=== PATIENT | female | born 1950 | race Caucasian/White ===

== ENCOUNTER 2020-04-29 11:50 | Observation (INO) | payer MEDICARE, SELFPAY ==
[2020-04-29] VITALS (42 sets, daily range): BP systolic 127–167; BP diastolic 65–97; PULSE 69–88; RESP 16–32; TEMP 36.1–36.6; O2SAT 97–100; BMI 37.2
--- NOTE | ~2020-04-29 | XR_ITS ---
XR chest 1V portable 05/01/2020 18:19 Indication: Status post fall. Trauma to the upper chest. Procedure: AP portable chest Comparison: Comparison to multiple prior studies sequentially, with oldest reviewed study dated 02/23. Findings: Heart size normal. Low lung volumes. Left basilar atelectasis. No focal pneumonia, pleural effusion, edema or pneumothorax. Calcified granuloma right upper lung zone. No acute osseous abnormal ity. Impression: 1: Left basilar atelectasis. Reviewed, dictated and finalized at location A. NG MACHINE OPERATOR Impression: 1: Left basilar atelectasis.
--- NOTE | ~2020-04-29 | US_ITS ---
EXAMINATION: US carotid duplex BI DATE: 04/30/2020 08:51 INDICATION: Syncope. TECHNIQUE: Grayscale, color Doppler, and pulsed Doppler images of the cervical carotid arteries were obtained. The degree of vessel stenosis is placed in one of the following categories: normal, <50%, 5 0-69%, >=70% but less than near-occlusion, near-occlusion, or total occlusion. Note that percent sten osis relative to normal distal artery lumen diameter is indirectly measured from velocity measurement s as described by Koby, et al. Radiology 2003; 229:340-346. COMPARISON: None. FINDINGS: RIGHT: The right common carotid artery (CCA) peak systolic velocity (PSV) is 78 cm/s. The right internal car otid artery (ICA) PSV is 65 cm/s. The right ICA end-diastolic velocity (EDV) is 15 cm/s. The right IC A/CCA PSV ratio is 0.8. Grayscale and color Doppler images yield an estimate of <50% diameter reducti on from plaque in the ICA. There is antegrade flow in the right vertebral artery. LEFT: The left CCA PSV is 93 cm/s. The left ICA PSV is 69 cm/s. The left ICA EDV is 17 cm/s. The left ICA/C CA PSV ratio is 0.7. Grayscale and color Doppler images yield an estimate of <50% diameter reduction from plaque in the ICA. There is antegrade flow in the left vertebral artery. IMPRESSION: 1. <50% stenosis in the right internal carotid artery. 2. <50% stenosis in the left internal carotid artery. Reviewed, dictated and finalized at location A. STANT BRAND MANAGER
--- NOTE | ~2020-04-29 | CT_ITS ---
EXAMINATION: CTA chest PE protocol DATE: 04/29/2020 16:38 INDICATION: Shortness of breath. TECHNIQUE: Computed tomography angiography (CTA) of the chest was performed with 100 mL Omnipaque-350 intravenous contrast timed to evaluate the pulmonary arteries. Coronal maximum intensity projection 3D-reconstructions were created by the technologist. Automated exposure control and iterative reconst ruction technique were employed. The dose-length product was 849.54 mGy-cm. COMPARISON: None. FINDINGS: There are scattered areas of mild atelectasis in the lungs. There is mosaic attenuation in the lungs, likely small airways disease. A calcified right lung nodule and calcified right hilar lymp h nodes are consistent with old granulomatous disease. There are several scattered nodules in the bryant gs measuring up to 5 mm, likely benign. No pleural effusion. There is left atrial enlargement of the heart. No pericardial effusion. There are coronary artery calcifications. There is no pulmonary embol us. There is a lap band at the proximal stomach with normal position. There are gallstones in the gal lbladder, which is normal in size. There is moderate thoracic spondylosis. There is mild chronic ante rior wedging of multiple lower thoracic vertebral bodies. IMPRESSION: 1. No pulmonary embolus. 2. Cholelithiasis. No evidence of acute cholecystitis. Reviewed, dictated and finalized at location A. 1ST GRADE TEACHER
--- NOTE | ~2020-04-29 | CT_ITS ---
EXAMINATION: CT brain wo con EXAM DATE: 04/29/2020 12:59 INDICATION: Syncope. Bruising to left judaism, head injury. TECHNIQUE: Spiral CT of the head was performed without contrast. Axial, coronal and sagittal images were reviewed. The dose-length product (DLP) for this examination was 605.33 mGy-cm. The exposure w as tailored according to patient size, and iterative reconstruction (ASIR) was used as additional dos e reduction technique. There is no prior study for comparison. FINDINGS: There is no acute intraparenchymal hemorrhage. No evidence of intraparenchymal brain mass lesion. No evidence of acute infarction. Please note that initial head CT has limited sensitivity f or small or acute infarctions. There is mild periventricular and subcortical hypodensity, nonspecific but probably related to small vessel ischemic disease. There is moderate prominence of the sulci a nd ventricles related to cerebral atrophy. There is intracranial carotid arteriosclerosis. There a re no extra-axial collections. There is no mass effect or midline shift. Patient has had bilateral ocular lens surgery. Small amount of left temporal scalp swelling. The visualized sinuses and mastoi d air cells are well aerated. IMPRESSION: 1. No acute intracranial findings. 2. Chronic age related findings. 3. Left scalp swelling. Reviewed, dictated and finalized at location B. GHT SERVICE INSPECTOR
--- NOTE | 2020-04-29 12:00 | ECG_ITS ---
Measurements Intervals [place] Rate: 78 P: 50 [place]: 142 QRS: -2 QRSD: 86 T: 46 QT: 378 QTc: 431 Interpretive Statements SINUS RHYTHM BASELINE ARTIFACT- I, II, AVR, AVL, V1, V3-V4 NORMAL ECG Electronically Signed On 04-29-2020 12:18:03 DIPPER MACHINE OPERATOR by Damian Elias D.O.
[2020-04-29 12:17] LABS: Basophils Absolute Auto 0.1 K/mm3 (0.0-0.1); Basophils Percent Auto 0.7 % (0.2-1.2); Eosinophils Absolute Auto 0.1 K/mm3 (0-0.3); Eosinophils Percent Auto 0.8 % (0-4.4); Hematocrit 38.7 % (37.0-47.0); Hemoglobin 12.9 g/dL (12.0-15.0); Immature Granulocyte Absolute 0.05 K/mm3 (0.00-0.031); Immature Granulocyte Percent A 0.5 % (0-0.5); Lymphocytes Absolute Auto 2.16 K/mm3 (0.9-3.2); Lymphocytes Percent Auto 20.4 % (18.3-44.2); Mean Corpuscular HGB Conc 33.3 g/dl (32-36); Mean Corpuscular Hemoglobin 30.4 pg (26-34); Mean Corpuscular Volume 91.1 fl (80-100); Mean Platelet Volume 9.3 fl (7.4-10.4); Monocytes Absolute Auto 0.6 K/mm3 (0.1-0.6); Monocytes Percent Auto 5.6 % (2.6-8.5); Neutrophils Absolute Auto 7.6 K/mm3 (1.3-6.7); Platelet Count Result 248 k/mm3 (150-375); Red Blood Count 4.25 M/mm3 (4.2-5.4); White Blood Count 10.6 K/mm3 (4.5-10.0)
[2020-04-29 12:29] LABS: Anion Gap 8 mmol/L (8-16); Blood Urea Nitrogen 14 mg/dL (7-17); Carbon Dioxide 30 mmol/L (22-30); Chloride 99 mmol/L (98-107); Estimated CRCL calculation 64 ml/min; Estimated Glomerular Filt Rate > 60; Glucose 114 mg/dL (65-105); Sodium 137 mmol/L (137-145)
--- NOTE | 2020-04-29 12:44 | ED.SYNCOPE ---
HPI - Syncope General Chief Complaint: Syncope Stated Complaint: SYNCOPE-FALL HI Time Seen by Provider: 04/29/20 12:17 Source: patient Mode of arrival: ambulatory Limitations: no limitations History of Present Illness HPI narrative: Patient is a 69-year-old female complaining of a syncopal episode, lasted only for 1 to 2 minutes, while walking to the bathroom at home, felt dizzy prior. Patient states that she did hit her head on a heater, having some head pain on the left and left shoulder pain. Patient was able to ambulate after the episode. Patient also complaining of left-sided chest pain which she attributes to her fall. Patient states that she was a symptomatic prior to the fall. Patient denies any speech or visual disturbance, neck pain, back pain, abdominal pain, hip, or any other extremity pain/injury. Related Data Allergies Allergy/AdvReac Type Severity Reaction Status Date / Time No Known Allergies Allergy Verified 04/29/20 11:59 Review of Systems Review of Systems: All systems reviewed & are unremarkable except as noted in HPI and below Constitutional: Constitutional: Denies body ache(s), Denies chills, Denies excessive sweating, Denies fatigue, Denies fever(s), Denies headache(s), Denies lethargy, Denies malaise, Denies weakness and Denies weight loss Eyes: Eyes: Denies blurry vision, Denies change in vision and Denies loss of vision ENT: Denies dizziness, Denies ear discharge, Denies headache(s), Denies lip swelling, Denies epistaxis, Denies nasal congestion, Denies neck pain, Denies throat swelling and Denies tongue swelling Cardiovascular: Cardiovascular: Denies chest pain, Denies chest pain at rest, Denies chest pain with activity, Denies diaphoresis, Denies rapid heart rate, Denies edema, Denies irregular heart rhythm, Denies lightheadedness, Denies palpitations, Denies dyspnea and Denies dyspnea on exertion Respiratory: Respiratory: Denies chest congestion, Denies cough, Denies hemoptysis, Denies dyspnea and Denies dyspnea on exertion Gastrointestinal: Gastrointestinal: Denies abdominal pain, Denies melena, Denies hematochezia, Denies diarrhea, Denies nausea, Denies vomiting and Denies hematemesis Musculoskeletal: Musculoskeletal: Denies abnormal gait, Denies deformity, Denies joint swelling, Denies limited range of motion, Denies neck pain and Denies numbness Neurologic: Denies Abnormal speech present, Denies abnormal gait, Denies confusion, Denies dizziness, Denies headache(s), Denies focal weakness, Denies loss of vision, Denies numbness, Denies Other visual disturbances, Denies Sensory deficit (Neuro) and Denies weakness Psychiatric: Psychiatric: Denies confusion, Denies depression, Denies auditory hallucinations, Denies homicidal ideation and Denies suicidal ideation Endocrine: Endocrine: Denies cold intolerance, Denies excessive sweating, Denies fatigue, Denies heat intolerance and Denies palpitations Hematologic/Lymphatic: Hematologic/Lymphatic: Denies easy bleeding and Denies easy bruising Allergic/Immunologic: Allergic/Immunologic: Denies lip swelling, Denies throat swelling and Denies tongue swelling PMFSH Social History Social History Smoking status: Never smoker Alcohol intake: never Exam Const: General: cooperative, healthy appearing, comfortable, no acute distress, well developed, alert and awake; No confusion Orientation/consciousness: oriented to person, oriented to place, oriented to time, patient oriented x3 and No confusion Limitations: no limitations HENMT: Ears: hearing grossly normal bilaterally, TM normal on the right and TM normal on the left General nose exam: Normal external nose present, Normal nares present and No nasal discharge present Face and sinus: normal facial exam Mouth: Yes Normal oral and palatal mucosa present, Yes lip normal, Yes tongue normal and Yes oropharynx normal Throat: posterior oropharynx normal, to
[2020-04-29] MEDS: SODIUM CHLORIDE 0.9% IV 1,000 ML 999 ML IV CONT (12:55)
[2020-04-29 14:32] LABS: Troponin I < 0.012 ng/mL (0.000-0.034)
[2020-04-29 15:29] LABS: D Dimer 1.04 ug/mL (<0.48)
[2020-04-29] MEDS: SODIUM CHLORIDE 0.9% IV 100 ML 400 ML (15:38)
[2020-04-29] MEDS: PROMETHAZINE HCL 25 MG/ML AMPUL (15:38)
--- NOTE | 2020-04-29 15:38 | PC.NURSE ---
vrbo to give ofirmev 1g ivp x1 phenergan 12.5mg ivp x1 ns [address] feldman
--- NOTE | 2020-04-29 16:30 | PM.IMHP ---
H&P: HPI History of Present Illness Date/Time: 04/29/20 16:30 Chief Complaint: Syncope. Narrative: This is a pleasant 69-year-old female with type 2 diabetes, hypertension, and obstructive sleep apnea who presented to the emergency department earlier today via private vehicle from home for evaluation after a syncopal episode. She got up to use the restroom at approximately 00:[address] back down the [place] everything suddenly went black and she woke up on the floor face down. She briefly lost consciousness and but was awake and oriented by the time her significant other got to her side. She hit the left side of her head on a space heater that was in the hallway, and landed with majority of her weight on the left side of her body. She had a difficult time getting up due to he vertigo and nausea thereafter, and her significant other had to help her to bed. Today she has had a splitting headache with photophobia as well as continued nausea. She did speak with her doctor about this episode and was directed to the emergency department. Currently she complains of a headache, mainly at this site of at a contusion on the left forehead from the fall. She is also having some discomfort in the left shoulder and left side of the chest, which she attributes to muscle strain from a fall. As above, she denies any significant prodrome and was not feeling lightheaded or dizzy prior to the episode. She also denies chest pain, pleuritic pain, and shortness of breath. No new medications although she did receive her 1st COVID vaccine about 3 days ago. No history of cardiac dysrhythmia. Review of Systems Review of Systems: Narrative: Twelve systems were reviewed with pertinent positives and negatives as per HPI. No fever, chills, or sweats. No recent cold or flu symptoms. She has had some vertigo since the fall and head trauma. No confusion. She denies focal weakness and paresthesias. No vomiting. Except as documented, all other systems were reviewed and are negative. [facility] Past Medical History Medical History (Updated 04/29/20 @ 23:02 by Myesha Croft PA-C) Asthma Essential hypertension History of shingles Obstructive sleep apnea on CPAP Type 2 diabetes mellitus Surgical History Surgical History (Updated 04/29/20 @ 22:59 by Myesha Croft PA-C) History of appendectomy History of arthroscopy of both knees History of bilateral cataract extraction History of bilateral knee arthroplasty History of bladder suspension procedure History of hysterectomy History of sinus surgery History of tonsillectomy History of tubal ligation Family History Family History Father Lymphoma Mother Heart disease Breast cancer Social History Social History (Updated 04/29/20 @ 23:00 by Myesha Croft PA-C) Social History: Surrogate decision maker: Mookie Pang, significant other. Code status: Full code. Smoking status: Former smoker Additional smoking assessment comments: 1 pack per day, quit about 25 years ago. Alcohol intake: never Substance use: never Additional living arrangements comments: Lives with her significant other in [place]. 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 Gender identity (if verbalized by the patient): Female Spiritual care concerns: No Meds Home Medications and Allergies Home Medications Medication Instructions Recorded Confirmed Type cholecalciferol (vitamin D3) 125 mcg PO DAILY 04/29/20 04/29/20 History liraglutide [Victoza 3-Ibrahima] 1.6 mg SUBCUT DAILY 04/29/20 04/29/20 History loratadine [Claritin] 10 mg PO DAILY 04/29/20 04/29/20 History losartan-hydrochlorothiazide 1 tablet PO DAILY 04/29/20 04/29/20 History metformin 1,000 mg PO BID 04/29/20 04/29/20 History Allergies Allergy/AdvReac Type Severity Reaction Status Date / Time No Known Allergies Allergy Verified 04/29/20 19:27
[2020-04-29] MEDS: LACTATED RINGERS 1,000 ML 250 ML IV CONT (17:51)
--- NOTE | 2020-04-29 18:45 | ADMGEN ---
This patient, Hallie Reina, was admitted to Medical Room 247-. Patient/family oriented to hospital policies and general routines including ID bracelet, bed and alarms, visiting hours, pain management, procedures, bathroom and other care routines, personal items, smoking policy, room service/diet, and visiting hours. Information on how to activate the Rapid Response Team has been discussed. Patient/Family are encouraged to report perceived risks to care and to ask questions if they do not understand what they are told or what they should do.
[2020-04-29] MEDS: ACETAMINOPHEN 325 MG TABLET 650 MG PO (23:37)
[2020-04-29 23:45] LABS: Glucose Point of Care 111 (65-105)
[2020-04-30] VITALS (14 sets, daily range): BP systolic 102–141; BP diastolic 56–80; PULSE 70–84; RESP 16–18; TEMP 35.9–37.2; O2SAT 94–98
--- NOTE | 2020-04-30 00:22 | PCRCNOTE ---
DISCUSSED CPAP WITH PT WHO DOES NOT WANT TO USE TONIGHT DUE TO BUMP ON HER HEAD FROM FALL. RN SOILA ESPINOZA AWARE OF PT DECISION AND WILL CALL IF PT CHANGES HER MIND AT ANY TIME.
[2020-04-30] MEDS: ACETAMINOPHEN 325 MG TABLET 650 MG PO ×3 (07:00→22:34)
[2020-04-30 07:50] LABS: Thyroid Stimulating Hormone Reflex 0.648 uIU/mL (0.465-4.68)
[2020-04-30] MEDS: LORATADINE 10 MG TABLET PO (08:00)
[2020-04-30] MEDS: CHOLECALCIFEROL 1,000 UNITS TABLET 5000 UNITS PO (08:00)
[2020-04-30] MEDS: hydroCHLOROthiazide 12.5 MG CAPSULE PO (08:00)
[2020-04-30] MEDS: LOSARTAN POTASSIUM 50 MG TABLET PO (08:00)
[2020-04-30 09:47] LABS: Glucose Point of Care 109 (65-105)
--- NOTE | 2020-04-30 11:48 | PM.IMPN ---
Progress Note: A&P Assessment and Plan (1) Syncopal episodes: Code(s): R55 - Syncope and collapse Status: Acute Assessment and Plan: 04/30/20 11:48 Patient is 69-year-old female with a past medical history of diabetes, hypertension obstructive sleep apnea, patient woke up at midnight on 04/29 to go to the bathroom on her way back patient states she suddenly felt blacked out and fell forward striking left side to the forehead and landing on space heater, there were no complaint chest pain, shortness of breath, palpitation or dizziness prior to fall, thinks she may have lost consciousness for few seconds, her boyfriend helped her get to the bed a patient slept remaining of the night in the morning her headache was getting worse and patient call her primary care was referred to the emergency department, patient still complains left-sided forehead pain, to further evaluate patient had a CT scan of the brain essential normal no acute injury, the CTA of the chest no pulmonary emboli, EKG essentially normal with normal sinus rhythm, currently patient states feels little better, also patient had carotid ultrasound did not show any stenosis, cardiac echo is pending, will have a PT OT evaluate the patient and further recommendation to follow (2) Closed head injury with concussion: Code(s): S06.0X9A - Concussion with loss of consciousness of unspecified duration, initial encounter Status: Acute Assessment and Plan: Plan is above (3) Type 2 diabetes mellitus: Code(s): E11.9 - Type 2 diabetes mellitus without complications Status: Acute Assessment and Plan: Will continue home regimen and monitor (4) Essential hypertension: Code(s): I10 - Essential (primary) hypertension Status: Acute Assessment and Plan: Will continue home regimen and monitor (5) Obstructive sleep apnea on CPAP: Code(s): G47.33 - Obstructive sleep apnea (adult) (pediatric); Z99.89 - Dependence on other enabling machines and devices Status: Acute Additional Plan The patient presented about 12 hours after having a syncopal episode last evening, without any significant prodrome. She will be monitored on telemetry to rule out cardiac dysrhythmia and may need a Holter monitor on discharge. Echocardiogram and carotid Doppler ultrasounds have been ordered for further evaluation. Orthostatic vital signs in the emergency department were unremarkable. She seems to have a concussion from the head injury, with headache and vertigo thus will continue neurologic checks. Blood pressures were reviewed and they were a bit elevated after her CT scan earlier today but have improved. Her home medications will be reviewed and resumed as appropriate. Initiate sliding scale insulin, Accu-Cheks, and hypoglycemic protocol. CPAP will be provided for her to use while hospitalized. Subjective Date/time seen: 04/30/20 11:48 Patient is 69-year-old female with a past medical history of diabetes, hypertension obstructive sleep apnea, patient woke up at midnight on 04/29 to go to the bathroom on her way back patient states she suddenly felt blacked out and fell forward striking left side to the forehead and landing on space heater, there were no complaint chest pain, shortness of breath, palpitation or dizziness prior to fall, thinks she may have lost consciousness for few seconds, her boyfriend helped her get to the bed a patient slept remaining of the night in the morning her headache was getting worse and patient call her primary care was referred to the emergency department, patient still complains left-sided forehead pain, to further evaluate patient had a CT scan of the brain essential normal no acute injury, the CTA of the chest no pulmonary emboli, EKG essentially normal with normal sinus rhythm, currently patient states feels little better, also patient had carotid ultrasound did not show any stenosis, cardiac echo is pending, will h
[2020-04-30 13:09] LABS: Hemoglobin A1C 5.6 % (<5.7)
[2020-04-30 13:21] LABS: Glucose Point of Care 79 (65-105)
[2020-04-30 14:40] LABS: Alanine Aminotransferase 19 U/L (4-35); Albumin Level 3.8 g/dL (3.5-5.1); Alkaline Phosphatase 48 U/L (38-126); Anion Gap 4 mmol/L (8-16); Aspartate Amino Transferase 25 U/L (14-36); Bilirubin,Total 0.4 mg/dL (0.2-1.3); Blood Urea Nitrogen 11 mg/dL (7-17); Calcium 8.6 mg/dL (8.4-10.2); Carbon Dioxide 30 mmol/L (22-30); Chloride 105 mmol/L (98-107); Estimated CRCL calculation 74 ml/min; Estimated Glomerular Filt Rate > 60; Glucose 106 mg/dL (65-105); Magnesium 1.7 mg/dL (1.6-2.3); Potassium 4.3 mmol/L (3.4-5.0); Sodium 139 mmol/L (137-145)
[2020-04-30 17:43] LABS: Glucose Point of Care 157 (65-105)
[2020-04-30 21:00] LABS: Glucose Point of Care 125 (65-105)
--- NOTE | 2020-04-30 23:04 | ECHO_ITS ---
Patient Info Name: Hallie Reina Age: 69 years : 1950 Gender: Female Ht: 67 in Wt: 230 lbs BSA: 2.26 m2 HR: 64 bpm BP: 112 / 61 mmHg Technical Quality: Fair Exam Date: 04/30/2020 11:10 AM Exam Location: [facility] Patient Status: Inpatient Admit Date: 04/29/2020 Staff Ordering Physician: Myesha Croft PA-C Rock Contractor: Shi Marina RDCS Attending Provider: Darren Mcfarlane MD Referring Physician: Guerda QUINTANA; Exam Type: CA echo dop color flow w con Study Info Complete two-dimensional, color flow and Doppler transthoracic echocardiogram is performed with contrast to opacify the left ventricle and to improve the deliniation of the left ventricle endocardial borders. Contrast/Agitated Saline Contrast/Ag. Saline: Definity Amount: 4.00 ml Summary 1. Left ventricular chamber dimension is normal. 2. Left ventricular systolic function is normal, estimated at 65-70%. 3. There is mildly increased left ventricular wall thickness. 4. Left ventricular septal wall motion is normal. 5. The left ventricular diastolic function is grade I diastolic dysfunction. 6. Right ventricular chamber dimension is normal. 7. Right ventricular systolic function is normal. 8. Left atrial chamber dimension is moderately enlarged. 9. No pulmonary hypertension, estimated pulmonary arterial systolic pressure is 24 mmHg. 10. Normal inferior vena cava with >50% collapse upon inspiration consistent with normal right atrial pressure, 3 mmHg. Left Ventricle Left ventricular chamber dimension is normal. Left ventricular systolic function is normal, estimated at 65-70%. There is mildly increased left ventricular wall thickness. Left ventricular septal wall motion is normal. The left ventricular diastolic function is grade I diastolic dysfunction. Right Ventricle Right ventricular chamber dimension is normal. Right ventricular systolic function is normal. Left Atria Left atrial chamber dimension is moderately enlarged. Right Atria Right atrial chamber dimension is normal. Aortic Valve The aortic valve is trileaflet. There is no aortic valve sclerosis. There is no aortic valve stenosis. There is no aortic valve regurgitation. Pulmonic Valve The pulmonic valve is not well visualized. There is no pulmonic valve stenosis. There is no pulmonic regurgitation. Mitral Valve The mitral valve has normal leaflets. There is no mitral valve stenosis. There is no mitral valve regurgitation. Tricuspid Valve The tricuspid valve leaflets are normal. There is no significant tricuspid valve stenosis. There is mild tricuspid valve regurgitation. No pulmonary hypertension, estimated pulmonary arterial systolic pressure is 24 mmHg. Pericardium/Pleural The pericardium appears normal. There is no pericardial effusion. Inferior Vena Cava Normal inferior vena cava with >50% collapse upon inspiration consistent with normal right atrial pressure, 3 mmHg. Aorta The aortic root size at the sinus of Valsalva is normal. The prox ascending aorta size is normal. Left Ventricular Outflow Tract Name Value Normal LVOT 2D LVOT Diameter 2.08 cm
[2020-05-01] VITALS (12 sets, daily range): BP systolic 113–144; BP diastolic 63–84; PULSE 66–95; RESP 16–18; TEMP 36.2–36.8; O2SAT 95–98
[2020-05-01] MEDS: ACETAMINOPHEN 325 MG TABLET 650 MG PO ×2 (03:56→18:03)
[2020-05-01 05:50] LABS: Hematocrit 34.1 % (37.0-47.0); Hemoglobin 11.2 g/dL (12.0-15.0); Mean Corpuscular HGB Conc 32.8 g/dl (32-36); Mean Corpuscular Hemoglobin 29.5 pg (26-34); Mean Corpuscular Volume 89.7 fl (80-100); Mean Platelet Volume 9.5 fl (7.4-10.4); Platelet Count Result 220 k/mm3 (150-375); Red Cell Distribution Width 13.9 % (11.5-14.5); White Blood Count 7.7 K/mm3 (4.5-10.0)
[2020-05-01 06:02] LABS: Anion Gap 5 mmol/L (8-16); Blood Urea Nitrogen 11 mg/dL (7-17); Calcium 8.4 mg/dL (8.4-10.2); Carbon Dioxide 30 mmol/L (22-30); Chloride 102 mmol/L (98-107); Estimated CRCL calculation 74 ml/min; Estimated Glomerular Filt Rate > 60; Glucose 113 mg/dL (65-105); Potassium 3.9 mmol/L (3.4-5.0); Sodium 137 mmol/L (137-145)
[2020-05-01] MEDS: LORATADINE 10 MG TABLET PO (08:19)
[2020-05-01] MEDS: LOSARTAN POTASSIUM 50 MG TABLET PO (08:19)
[2020-05-01] MEDS: CHOLECALCIFEROL 1,000 UNITS TABLET 5000 UNITS PO (08:19)
[2020-05-01] MEDS: hydroCHLOROthiazide 12.5 MG CAPSULE PO (08:19)
--- NOTE | 2020-05-01 08:24 | PC.NURSE ---
Pt home med Victoza has not been brought to hospital.
--- NOTE | 2020-05-01 09:19 | ECG_ITS ---
Measurements Intervals [place] Rate: 90 P: 19 [place]: 145 QRS: 13 QRSD: 77 T: 34 QT: 335 QTc: 411 Interpretive Statements SINUS RHYTHM ATRIAL PREMATURE COMPLEX BORDERLINE T WAVE ABNORMALITY- INFERIOR LEADS BORDERLINE ECG Electronically Signed On 05-01-2020 11:28:30 LIGHTING EQUIPMENT OPERATOR by Damian Elias D.O.
--- NOTE | 2020-05-01 09:45 | PM.IMPN ---
Progress Note: A&P Assessment and Plan (1) Syncopal episodes: Code(s): R55 - Syncope and collapse Status: Acute Assessment and Plan: 05/01/20 09:45 Patient is 69-year-old female with a past medical history of diabetes, hypertension obstructive sleep apnea, patient woke up at midnight on 04/29 to go to the bathroom on her way back patient states she suddenly felt blacked out and fell forward striking left side to the forehead and landing on space heater, there were no complaint chest pain, shortness of breath, palpitation or dizziness prior to fall, thinks she may have lost consciousness for few seconds, her boyfriend helped her get to the bed a patient slept remaining of the night in the morning her headache was getting worse and patient call her primary care was referred to the emergency department, patient still complains left-sided forehead pain, to further evaluate patient had a CT scan of the brain essential normal no acute injury, the CTA of the chest no pulmonary emboli, EKG essentially normal with normal sinus rhythm, currently patient states feels little better, also patient had carotid ultrasound did not show any stenosis, cardiac echo is pending, will have a PT OT evaluate the patient and further recommendation to follow. 05/01 patient cardiac echo and carotid ultrasound are essentially normal patient has not had any syncopal episode while in the hospital, is feeling much better denies any complaint chest pain shortness of breath palpitation, her telemetry remained stable without any obvious arrhythmia, however etiology for syncopal episode etiology is not clear, possibly cardiac arrhythmia will do EKG will consult environmental compliance specialist, patient may benefit going home with a Holter monitor to further evaluate, will be seen by environmental compliance specialist and further recommendation to follow (2) Closed head injury with concussion: Code(s): S06.0X9A - Concussion with loss of consciousness of unspecified duration, initial encounter Status: Acute Assessment and Plan: Plan is above (3) Type 2 diabetes mellitus: Code(s): E11.9 - Type 2 diabetes mellitus without complications Status: Acute Assessment and Plan: Will continue home regimen and monitor (4) Essential hypertension: Code(s): I10 - Essential (primary) hypertension Status: Acute Assessment and Plan: Will continue home regimen and monitor (5) Obstructive sleep apnea on CPAP: Code(s): G47.33 - Obstructive sleep apnea (adult) (pediatric); Z99.89 - Dependence on other enabling machines and devices Status: Acute Subjective Date/time seen: 05/01/20 09:45 Patient is 69-year-old female with a past medical history of diabetes, hypertension obstructive sleep apnea, patient woke up at midnight on 04/29 to go to the bathroom on her way back patient states she suddenly felt blacked out and fell forward striking left side to the forehead and landing on space heater, there were no complaint chest pain, shortness of breath, palpitation or dizziness prior to fall, thinks she may have lost consciousness for few seconds, her boyfriend helped her get to the bed a patient slept remaining of the night in the morning her headache was getting worse and patient call her primary care was referred to the emergency department, patient still complains left-sided forehead pain, to further evaluate patient had a CT scan of the brain essential normal no acute injury, the CTA of the chest no pulmonary emboli, EKG essentially normal with normal sinus rhythm, currently patient states feels little better, also patient had carotid ultrasound did not show any stenosis, cardiac echo is pending, will have a PT OT evaluate the patient and further recommendation to follow. 05/01 patient cardiac echo and carotid ultrasound are essentially normal patient has not had any syncopal episode while in the hospital, is feeling much better denies any complaint chest pain shortness o
--- NOTE | 2020-05-01 12:12 | PM.CNCAR ---
Assessment and Plan Additional Plan Syncope etiology unclear, likely orthostatic or vasovagal, She was wearing and an electronic heart monitoring watch that showed no arrhythmia but non conclusive. Plan Event monitor for one month History of Present Illness History of Present Illness Consult date/time: 05/01/20 12:12 Consult reason: Other (Syncope) Reason For Visit: Syncope/Dizziness Narrative: Patient presented with acute episode of syncope. Patient was at home and was walking to bathroom when she felt acute dizziness and sudden loss of consciousness and fall with hit to side of chest. She remembers much details. She wake up spontaneously and presented to hospital. She had no associated chest pain or SOB or palpitation. No prior similar episodes and no prior Hx of heart disease. 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 Review of Systems Review of Systems: All systems reviewed & are unremarkable except as noted in HPI and below PMFSH Past Medical History Medical History (Updated 04/29/20 @ 23:02 by Myesha Croft PA-C) Asthma Essential hypertension History of shingles Obstructive sleep apnea on CPAP Type 2 diabetes mellitus Surgical History Surgical History (Updated 04/29/20 @ 22:59 by Myesha Croft PA-C) History of appendectomy History of arthroscopy of both knees History of bilateral cataract extraction History of bilateral knee arthroplasty History of bladder suspension procedure History of hysterectomy History of sinus surgery History of tonsillectomy History of tubal ligation Family History Family History Father Lymphoma Mother Heart disease Breast cancer Social History Social History (Updated 04/29/20 @ 23:00 by Myesha Croft PA-C) Social History: Surrogate decision maker: Mookie Pang, significant other. Code status: Full code. Smoking status: Former smoker Additional smoking assessment comments: 1 pack per day, quit about 25 years ago. Alcohol intake: never Substance use: never Additional living arrangements comments: Lives with her significant other in [place]. 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 Gender identity (if verbalized by the patient): Female Spiritual care concerns: No Meds Home Medications and Allergies Home Medications Medication Instructions Recorded Confirmed Type cholecalciferol (vitamin D3) 125 mcg PO DAILY 04/29/20 04/29/20 History liraglutide [Victoza 3-Ibrahima] 1.6 mg SUBCUT DAILY 04/29/20 04/29/20 History loratadine [Claritin] 10 mg PO DAILY 04/29/20 04/29/20 History losartan-hydrochlorothiazide 1 tablet PO DAILY 04/29/20 04/29/20 History metformin 1,000 mg PO BID 04/29/20 04/29/20 History Allergies Allergy/AdvReac Type Severity Reaction Status Date / Time No Known Allergies Allergy Verified 04/29/20 19:27 Vital Signs Vital Signs - 24 hr 04/30/20 13:16 04/30/20 14:00 04/30/20 14:02 Temperature 37.2 C Pulse Rate 84 79 Respiratory Rate 18 16 Blood Pressure 116/65 120/69 Pulse Oximetry 94 95 04/30/20 14:04 04/30/20 16:00 04/30/20 20:00 Temperature Pulse Rate 79 78 Respiratory Rate Blood Pressure 130/70 102/56 L Pulse Oximetry 04/30/20 21:14 04/30/20 21:15 05/01/20 00:00 Temperature 37.1 C Pulse Rate 76 70 Respiratory Rate 16 Blood Pressure 115/65 105/66 Pulse Oximetry 95 05/01/20 04:00 05/01/20 04:57 05/01/20 08:00 Temperature 36.2 C L 36.2 C L Pulse Rate 71 66 85 Respiratory Rate 16 16 Blood Pressure 113/66 Pulse Oximetry 96 Exam Const: General: comfortable and no acute distress Other: Able to lie flat HENMT: General nose exam: Normal nares present and no epistaxis Mouth: Yes moist mucous membranes Eyes: Sclera: sclerae normal Pupils: Equal, round and reactive pupils present Neck: Neck:
[2020-05-01 13:00] LABS: Glucose Point of Care 110 (65-105)
[2020-05-01 13:00] LABS: Glucose Point of Care 124 (65-105)
[2020-05-01] MEDS: BACLOFEN 10 MG TABLET PO ×2 (13:46→21:10)
[2020-05-01 17:11] LABS: Glucose Point of Care 156 (65-105)
[2020-05-01] MEDS: DOCUSATE SODIUM 100 MG CAPSULE PO (18:05)
[2020-05-01] MEDS: traMADol HCL (*CRX) 50 MG TABLET PO (22:08)
[2020-05-02] VITALS: PULSE 74
[2020-05-02 00:06] LABS: Glucose Point of Care 102 (65-105)
[2020-05-02 04:00] VITALS: PULSE 86
[2020-05-02] MEDS: ACETAMINOPHEN 325 MG TABLET 650 MG PO (05:02)
[2020-05-02 05:26] LABS: Hematocrit 36.8 % (37.0-47.0); Hemoglobin 12.2 g/dL (12.0-15.0); Mean Corpuscular HGB Conc 33.2 g/dl (32-36); Mean Corpuscular Hemoglobin 29.9 pg (26-34); Mean Corpuscular Volume 90.2 fl (80-100); Mean Platelet Volume 9.7 fl (7.4-10.4); Platelet Count Result 250 k/mm3 (150-375); Red Blood Count 4.08 M/mm3 (4.2-5.4); White Blood Count 7.9 K/mm3 (4.5-10.0)
[2020-05-02 05:40] LABS: Anion Gap 3 mmol/L (8-16); Blood Urea Nitrogen 11 mg/dL (7-17); Calcium 8.6 mg/dL (8.4-10.2); Carbon Dioxide 31 mmol/L (22-30); Chloride 102 mmol/L (98-107); Estimated CRCL calculation 74 ml/min; Estimated Glomerular Filt Rate > 60; Glucose 130 mg/dL (65-105); Potassium 3.9 mmol/L (3.4-5.0); Sodium 136 mmol/L (137-145)
[2020-05-02 05:53] VITALS: BP 145/64; PULSE 79; RESP 18; TEMP 36.3; O2SAT 99
[2020-05-02] MEDS: BACLOFEN 10 MG TABLET PO ×2 (06:50→14:09)
[2020-05-02 07:39] LABS: Glucose Point of Care 128 (65-105)
[2020-05-02] MEDS: LORATADINE 10 MG TABLET PO (07:49)
[2020-05-02] MEDS: CHOLECALCIFEROL 1,000 UNITS TABLET 5000 UNITS PO (07:49)
[2020-05-02] MEDS: hydroCHLOROthiazide 12.5 MG CAPSULE PO (07:50)
[2020-05-02] MEDS: LOSARTAN POTASSIUM 50 MG TABLET PO (07:50)
[2020-05-02 08:00] VITALS: PULSE 81
[2020-05-02 12:00] VITALS: PULSE 102
[2020-05-02] MEDS: traMADol HCL (*CRX) 50 MG TABLET PO (12:56)
[2020-05-02 14:00] VITALS: BP 108/56; PULSE 84; RESP 18; TEMP 36.1; O2SAT 97
--- NOTE | 2020-05-02 14:37 | PM.PNCARD ---
Progress Note: A&P Additional Plan 69-year-old patient with: Episode of syncope which occurred last week fall and contusions about the upper part of the chest and the left lateral aspect of her head. No other significant injuries. No evidence of any problematic Calvin arrhythmias with 48 hours of hospital observation. Patient in my opinion is stable for discharge my office will arrange for placement of a 30 day event monitor upon discharge we will have her brought downstairs to have then applied and I will arrange for follow-up after that data has been collected. Jonathan Landeros MD [facility] Subjective Date/time seen: Date of service: 05/02/20 14:37 Interval history: Follow-up visit in this 69-year-old lady with: Episode of syncope which occurred last week Saturday resulting in fall and contusions but no other serious injuries. Telemetry has been benign no significant arrhythmias that would explain this. Anticipated discharge for today. Exam Const: General: comfortable and no acute distress HENMT: Mouth: Yes moist mucous membranes Eyes: Sclera: sclerae normal Pupils: Equal, round and reactive pupils present Neck: Neck: supple and no JVD Thyroid: thyroid normal Resp: Effort & Inspection: normal respiratory effort Auscultation: clear to auscultation bilaterally Cardio: Rate: regular rate Rhythm: regular rhythm GI: GI Palp: Yes Soft to palpation Auscultation: normal bowel sounds Skin: General skin exam: normal color Neuro: Cognition (Neuro): normal cognition Extrem: General: normal to inspection Objective Data Vital Signs Vital Signs: Vital Signs - 24 hr 05/01/20 16:00 05/01/20 19:03 05/01/20 20:00 Temperature 36.2 C L Pulse Rate 84 80 Respiratory Rate Blood Pressure 144/83 H Pulse Oximetry 05/01/20 21:10 05/01/20 21:36 05/01/20 23:10 Temperature 36.8 C Pulse Rate 80 84 Respiratory Rate 18 18 Blood Pressure 121/69 126/71 Pulse Oximetry 98 98 05/02/20 00:00 05/02/20 04:00 05/02/20 05:53 Temperature 36.3 C L Pulse Rate 74 86 79 Respiratory Rate 18 Blood Pressure 145/64 H Pulse Oximetry 99 05/02/20 14:00 Temperature 36.1 C L Pulse Rate 84 Respiratory Rate 18 Blood Pressure 108/56 L Pulse Oximetry 97 Intake/Output Intake/Output: Intake & Output 04/29/20 04/30/20 05/01/20 05/02/20 23:59 23:59 23:59 23:59 Intake Total 2200 2110 880 1030 Output Total 3500 550 200 Balance 2200 -1390 330 830 Meds/Results Medications: Active Medications Generic Name Dose Route Start Last Admin Trade Name Freq PRN Reason Stop Dose Admin Acetaminophen 650 mg 04/29/20 23:05 05/02/20 05:02 Acetaminophen 325 Mg Tablet PO 650 mg Q6H PRN Administration Mild Pain (1-3) or Fever Baclofen 10 mg 05/01/20 14:00 05/02/20 14:09 Baclofen 10 Mg Tablet PO 10 mg Q8HR COOPER Administration Dextrose 12.5 gm 04/29/20 23:05 Dextrose 50% 25 Gm/50 Ml Syringe IV PUSH PRN PRN Hypoglycemia Protocol Docusate Sodium 100 mg 05/01/20 17:36 05/01/20 18:05 Docusate Sodium 100 Mg Capsule PO 100 mg Q12H PRN Administration Constipation Glucagon 1 mg 04/29/20 23:05 Glucagon For Inj 1 Mg Vial IM PRN PRN Hypoglycemia Protocol Glucose 15 gm 04/29/20 23:05 Glucose Oral Gel 15 Gm Of Glucse In 37.5 Gm Tube PO PRN PRN Hypoglycemia Protocol Hydrochlorothiazide 12.5 mg 04/30/20 09:00 05/02/20 07:50 Hydrochlorothiazide 12.5 Mg Capsule PO 05/30/20 09:01 12.5 mg DAILY COOPER Administration Dextrose 1,000 mls @ 100 mls/hr 04/29/20 23:05 Dextrose 5% 1,000 Ml IVPB PRN PRN Hypoglycemia Protocol Loratadine 10 mg 04/30/20 09:00 05/02/20 07:49 Loratadine 10 Mg Tablet PO 10 mg DAILY COOPER Administration Losartan Potassium 50 mg 04/30/20 09:00 05/02/20 07:50 Losartan Potassium 50 Mg Tablet PO 05/30/20 09:01 50 mg DAILY COOPER Administration Non-Formulary M
--- NOTE | 2020-05-02 15:00 | PM.DS ---
DS: Admitting Diagnosis Admitting Diagnosis Admitting Diagnosis: Chief Complaint: Syncope. DS: Discharge Diagnosis Discharge Diagnosis (1) Syncopal episodes: Code(s): R55 - Syncope and collapse Status: Acute Assessment and Plan: 05/01/20 09:45 Patient is 69-year-old female with a past medical history of diabetes, hypertension obstructive sleep apnea, patient woke up at midnight on 04/29 to go to the bathroom on her way back patient states she suddenly felt blacked out and fell forward striking left side to the forehead and landing on space heater, there were no complaint chest pain, shortness of breath, palpitation or dizziness prior to fall, thinks she may have lost consciousness for few seconds, her boyfriend helped her get to the bed a patient slept remaining of the night in the morning her headache was getting worse and patient call her primary care was referred to the emergency department, patient still complains left-sided forehead pain, to further evaluate patient had a CT scan of the brain essential normal no acute injury, the CTA of the chest no pulmonary emboli, EKG essentially normal with normal sinus rhythm, currently patient states feels little better, also patient had carotid ultrasound did not show any stenosis, cardiac echo is pending, will have a PT OT evaluate the patient and further recommendation to follow. 05/01 patient cardiac echo and carotid ultrasound are essentially normal patient has not had any syncopal episode while in the hospital, is feeling much better denies any complaint chest pain shortness of breath palpitation, her telemetry remained stable without any obvious arrhythmia, however etiology for syncopal episode etiology is not clear, possibly cardiac arrhythmia will do EKG will consult special order jeweler, patient may benefit going home with a Holter monitor to further evaluate, will be seen by special order jeweler and further recommendation to follow (2) Closed head injury with concussion: Code(s): S06.0X9A - Concussion with loss of consciousness of unspecified duration, initial encounter Status: Acute Assessment and Plan: Plan is above (3) Type 2 diabetes mellitus: Code(s): E11.9 - Type 2 diabetes mellitus without complications Status: Acute Assessment and Plan: Will continue home regimen and monitor (4) Essential hypertension: Code(s): I10 - Essential (primary) hypertension Status: Acute Assessment and Plan: Will continue home regimen and monitor (5) Obstructive sleep apnea on CPAP: Code(s): G47.33 - Obstructive sleep apnea (adult) (pediatric); Z99.89 - Dependence on other enabling machines and devices Status: Acute DS: Summary Hospital Course Reason for hospitalization: Chief Complaint: Syncope. Narrative: This is a pleasant 69-year-old female with type 2 diabetes, hypertension, and obstructive sleep apnea who presented to the emergency department earlier today via private vehicle from home for evaluation after a syncopal episode. She got up to use the restroom at approximately 00:[address] back down the [place] everything suddenly went black and she woke up on the floor face down. She briefly lost consciousness and but was awake and oriented by the time her significant other got to her side. She hit the left side of her head on a space heater that was in the hallway, and landed with majority of her weight on the left side of her body. She had a difficult time getting up due to he vertigo and nausea thereafter, and her significant other had to help her to bed. Today she has had a splitting headache with photophobia as well as continued nausea. She did speak with her doctor about this episode and was directed to the emergency department. Currently she complains of a headache, mainly at this site of at a contusion on the left forehead from the fall. She is also having some discomfort in the left shoulder and left side of the chest,
== END 2020-05-02 15:39 | disposition home or self-care (01) ==
LOC: ANHED 16:59 → ANH2MED 04-30 01:38
PROVIDERS: Emergency Medicine; Physician Assistant; Admitting Provider Internal Medicine; Emergency Provider Emergency Medicine; PCP Internal Medicine; Visit Provider Family Medicine
DX: R55 Syncope and collapse (principal); S06.0X9A Concussion with loss of consciousness of unspecified duration, initial encounter; W18.39XA Other fall on same level, initial encounter; E11.9 Type 2 diabetes mellitus without complications; I10 Essential (primary) hypertension; G47.33 Obstructive sleep apnea (adult) (pediatric); J45.909 Unspecified asthma, uncomplicated; Z99.89 Dependence on other enabling machines and devices; Z79.84 Long term (current) use of oral hypoglycemic drugs; Z87.891 Personal history of nicotine dependence
CPT/HCPCS: 36415; 70450; 71045; 71275; 80048; 80053; 82948; 83036; 83735; 84443; 84484; 85025; 85027; 85380; 93005; 93880; 96361; 96374; 96375; 96376; 97161; 97165; 99285; A9270; C8929; G0378; J0131; J2550; J7030; J7120; Q9957; Q9967

== ENCOUNTER 2021-02-07 09:54 | Outpatient (CLI) | payer MEDICARE, SELFPAY ==
--- NOTE | ~2021-02-07 | DEXA_ITS ---
Bone Density Report Name: Hallie Reina Age: 70 Sex: Female Ethnicity: White Date of : 1950 Indication: postmenopausal; height loss; prior fracture; asthma or emphysema; hysterectomy; Referring Provider: Britany, Anjelica Acuña Study: Bone densitometry was performed. Exam Date: February 07, 2021 Accession number: [id number] Bone Density: Region BMD T-score Z-score Classification AP Spine (L2, L3) 1.090 0.3 2.5 Normal Femoral Neck (Left) 0.682 -1.5 0.3 Osteopenia Total Hip (Left) 0.892 -0.4 1.1 Normal Total Hip Bilateral Avg 0.854 -0.7 0.8 Normal Femoral Neck (Right) 0.718 -1.2 0.6 Osteopenia Total Hip (Right) 0.815 -1.0 0.5 Normal World Health Organization criteria for BMD impression classify patients as: Normal (T-score at or above -1.0), Osteopenia (T-score between -1.0 and -2.5), or Osteoporosis (T-score at or below -2.5). 10-year Fracture Risk(1): Major Osteoporotic Fracture 14% Hip Fracture 1.9% Reported Risk Factors: [place] (), Neck BMD=0.682, BMI=38.4, previous fracture (1) FRAX(R) Version 3.08. Fracture probability calculated for an untreated patient. Fracture probability may be lower if the patient has received treatment. Previous Exams: Region Exam Age BMD T-score BMD Change BMD Change Date g/cm2 vs Baseline vs Previous AP Spine(L2, L3) 02/07/2021 70 1.090 0.3 0.028(2.6%)# 0.028(2.6%)# 12/06/2007 57 1.063 0.0 Total Hip(Left) 02/07/2021 70 0.892 -0.4 -0.048(-5.1%)# -0.048(-5.1%)# 12/06/2007 57 0.940 0.0 Total Hip(Right) 02/07/2021 70 0.815 -1.0 -0.098(-10.7%) -0.098(-10.7%) 12/06/2007 57 0.913 -0.2 *Denotes significance at 95% confidence level, LSC for AP Spine = 0.022 g/cm2, LSC for Total Hip = 0.027 g/cm2 Clinical Information Provided by Patient: Has had a low trauma fracture Has used the following medications: Vitamin D, Calcium Has the following medical conditions: Asthma or Emphysema, Hysterectomy Patient maximum height was 67 Menopause Age: 50 No regular weight bearing exercise Drinks caffeinated beverages Onset of menses at age 12 Number of children 2 Impression: The patient has low bone mass, based on the Left Femoral Neck T-score. The patient has an estimated ten-year risk of hip fracture of 1.9% and an estimated ten-year risk of major fracture of 14%, based on the WHO FRAX algorithm. The patient has risk factors, including: previous fracture. No significant bone loss was
== END 2021-02-07 09:55 | disposition home or self-care (01) ==
PROVIDERS: PCP Internal Medicine; Visit Provider Internal Medicine
DX: Z78.0 Asymptomatic menopausal state (principal); M85.89 Other specified disorders of bone density and structure, multiple sites
CPT/HCPCS: 77080

== ENCOUNTER 2021-02-28 09:38 | Outpatient (CLI) | payer MEDICARE, SELFPAY ==
--- NOTE | ~2021-02-28 | MM_ITS ---
EXAMINATION: MM screening derrick BI w alli HISTORY: Screening TECHNIQUE: Craniocaudal and mediolateral oblique 3-D tomosynthesis images were obtained and synthetic 2-D images were generated. CAD analysis was submitted and interpreted. COMPARISON: 11/26/2018 BREAST PARENCHYMAL COMPOSITION: There are scattered areas of fibroglandular density. FINDINGS: There is no evidence of suspicious mass, calcification, or architectural distortion to sugg est malignancy in either breast. There has been no suspicious interval change. IMPRESSION: 1. No mammographic evidence of malignancy. 2. Recommend routine screening mammography in one year. BI-RADS Category 1: Negative Reviewed, dictated and finalized at location A. GER SCOOP OPERATOR
== END 2021-02-28 09:39 | disposition home or self-care (01) ==
LOC: ANHIMG 09:40
PROVIDERS: PCP Internal Medicine; Visit Provider Internal Medicine
DX: Z12.31 Encounter for screening mammogram for malignant neoplasm of breast (principal)
CPT/HCPCS: 77063; 77067

== ENCOUNTER 2021-08-15 14:37 | Outpatient (CLI) | payer MEDICARE, SELFPAY ==
--- NOTE | ~2021-08-15 | XR_ITS ---
EXAMINATION: XR elbow LT min 3V DATE: 08/15/2021 15:08 INDICATION: Left elbow pain radiating down the forearm TECHNIQUE: Anteroposterior, two oblique and lateral views of the left elbow were obtained. COMPARISON: None. FINDINGS: Alignment is normal. No fracture or joint effusion. Mild osteoarthritis with mild nonuniform joint sp orx narrowing at the ulnotrochlear articulation. Tiny olecranon enthesophyte. Diffuse osteopenia. Sof t tissues are unremarkable. IMPRESSION: 1. Mild osteoarthritis at the left elbow. Reviewed, dictated and finalized at location B.
== END 2021-08-15 14:38 | disposition home or self-care (01) ==
PROVIDERS: PCP Internal Medicine; Visit Provider Internal Medicine
DX: M25.522 Pain in left elbow (principal); M19.022 Primary osteoarthritis, left elbow
CPT/HCPCS: 73080

== ENCOUNTER 2021-10-30 15:13 | Outpatient (CLI) | payer MEDICARE, SELFPAY ==
--- NOTE | ~2021-10-30 | CT_ITS ---
EXAMINATION: CT diagnostic chest wo con DATE: 10/30/2021 15:42 INDICATION: Lung nodule follow-up TECHNIQUE: Computed tomography (CT) of the chest was performed without intravenous contrast. Automate d exposure control and iterative reconstruction technique were employed. Exam dose: 257.10 mGy-cm to morro exam DLP. COMPARISON: Numerous portable AP chest Minimal CT pulmonary scan FINDINGS: Chronic enlarged left lobe of thyroid gland also present on . Heart size. Coronary artery calcifications. No pericardial effusion. No thoracic aortic aneurysm. No hilar or mediastinal mass lesion or lymphadenopathy. There is interval resolution of patchy bilateral groundglass infiltrates of the lungs, to, wit h minimal residual discoid atelectasis or scarring at the left lung base. Numerous scattered bilatera l small pulmonary nodular densities appear largely stable since the nipple CT scan, althoug h comparison is not optimal due to the prior pulmonary infiltrates which obscures some of the nodular areas. [address] examination is recommended. Small sliding hiatal hernia. Lap band device is noted. Included portions of the adrenal glands are normal. IMPRESSION: Interval virtually complete resolution of bilateral patchy groundglass infiltrates, mini mal discoid atelectasis or scarring remaining at the left lung base Numerous bilateral pulmonary nodular densities appear largely stable since numerous , althou gh some areas are difficult to compare because of the prior infiltrates. Six-month follow-up CT chest is recommended Reviewed, dictated and finalized at Location A. Reviewed, dictated and finalized at location B. IMPRESSION: Interval virtually complete resolution of bilateral patchy groundg lass infiltrates, minimal discoid atelectasis or scarring remaining at the left lung base Numerous bilateral pulmonary nodular densities appear largely stable since nume shine , although some areas are difficult to compare because of the charmaine or infiltrates. Six-month follow-up CT chest is recommended
== END 2021-10-30 15:14 | disposition home or self-care (01) ==
PROVIDERS: PCP Internal Medicine; Visit Provider Internal Medicine
DX: R91.8 Other nonspecific abnormal finding of lung field (principal)
CPT/HCPCS: 71250

== ENCOUNTER → 2022-05-11 10:43 | Outpatient (CLI) | payer MEDICARE, SELFPAY ==
--- NOTE | ~2022-05-11 | CT_ITS ---
EXAMINATION: CT diagnostic chest wo con DATE: 05/11/2022 11:01 INDICATION: Lung nodules. TECHNIQUE: Computed tomography (CT) of the chest was performed without intravenous contrast. The dose -length product was 209.16 mGy-cm. Automated exposure control and iterative reconstruction technique were employed. COMPARISON: Comparison to multiple prior studies sequentially, with oldest reviewed study dated 07/2020. FINDINGS: There is evidence for chronic granulomatous disease. No significant pleural or pericardial effusion. Heart size normal. There is atherosclerosis of the aorta and coronary arteries. There are p ossible gallstones. There is a laparoscopic adjustable gastric band. No thoracic lymphadenopathy. The re are multiple bilateral pulmonary nodules which are not significantly changed, measuring 5 mm or le ss, likely benign. Mildly elevated left diaphragm. No new pulmonary nodules or masses. No pneumothora x. No focal airspace consolidation. No endobronchial lesions. No acute osseous abnormality. IMPRESSION: 1. Stable bilateral pulmonary nodules measuring 5 mm or less, likely benign. Recommend follow-up low dose CT chest in 12 months. Reviewed, dictated and finalized at location A. NCIAL AGENT IMPRESSION: 1. Stable bilateral pulmonary nodules measuring 5 mm or less, likely benign. Re commend follow-up low dose CT chest in 12 months.
== END ==
PROVIDERS: PCP Internal Medicine; Visit Provider Internal Medicine
DX: R91.8 Other nonspecific abnormal finding of lung field (principal)
CPT/HCPCS: 71250

== ENCOUNTER 2022-09-03 13:42 | Outpatient (CLI) | payer MEDICARE, SELFPAY ==
--- NOTE | ~2022-09-03 | MM_ITS ---
EXAMINATION: MM screening derrick BI w alli HISTORY: Screening mammogram TECHNIQUE: Craniocaudal and mediolateral oblique 3-D tomosynthesis images were obtained and synthetic 2-D images were generated. CAD analysis was submitted and interpreted. COMPARISON: 02/28/2021, 11/2018 bilateral screening mammogram examinations BREAST PARENCHYMAL COMPOSITION: The breasts are almost entirely fatty. FINDINGS: There is no evidence of suspicious mass, calcification, or architectural distortion to sugg est malignancy in either breast. There has been no suspicious interval change. IMPRESSION: 1. No mammographic evidence of malignancy. 2. Recommend routine screening mammography in one year. BI-RADS Category 1: Negative Reviewed, dictated and finalized at location A.
== END 2022-09-03 13:43 | disposition home or self-care (01) ==
LOC: ANHIMG 13:44
PROVIDERS: PCP Internal Medicine; Visit Provider Internal Medicine
DX: Z12.31 Encounter for screening mammogram for malignant neoplasm of breast (principal)
CPT/HCPCS: 77063; 77067

== ENCOUNTER → 2023-05-13 10:30 | Outpatient (CLI) | payer MEDICARE, SELFPAY ==
--- NOTE | ~2023-05-13 | CT_ITS ---
CT Scan of the Chest without Contrast: Clinical Indication: Pulmonary nodules Technique: Contiguous sections were acquired throughout the chest without intravenous contrast. Dose reduction technique was used on this scan by utilizing automated exposure control and iterative recon struction technique. The dose-length product (DLP) was 176.44 mGy-cm. COMPARISON: 05/11/2022 Findings: There is no evidence of any significant mediastinal, hilar or axillary lymphadenopathy. Coronary chad ry calcifications are present. There is no evidence of pleural or pericardial effusion. Multiple subcentimeter scattered peripheral pulmonary nodules are essentially stable from prior exam. Images through the upper abdomen reveal probable gallstones. Impression: Multiple scattered subcentimeter pulmonary nodules are unchanged. Reviewed, dictated and finalized at [facility]. N RESOURCES DIRECTOR Impression: Multiple scattered subcentimeter pulmonary nodules are unchanged.
== END ==
PROVIDERS: PCP Internal Medicine; Visit Provider Internal Medicine
DX: R91.8 Other nonspecific abnormal finding of lung field (principal)
CPT/HCPCS: 71250

== ENCOUNTER 2023-05-13 10:44 | Outpatient (CLI) | payer MEDICARE, SELFPAY ==
[2023-05-13 13:11] LABS: Iron 53 ug/dL (37-170)
[2023-05-13 13:20] LABS: Percent Iron Saturation 16 % (20-50)
[2023-05-13 13:46] LABS: Ferritin 9.73 ng/mL (11.1-264)
== END 2023-05-13 10:45 | disposition home or self-care (01) ==
PROVIDERS: PCP Internal Medicine; Visit Provider Internal Medicine
DX: D64.9 Anemia, unspecified (principal)
CPT/HCPCS: 36415; 82607; 82728; 82746; 83540; 83550; 84443

== ENCOUNTER 2023-05-16 13:09 | Outpatient (CLI) | payer MEDICARE, SELFPAY ==
[2023-05-16 19:19] LABS: Basophils Absolute Auto 0.1 K/mm3 (0.0-0.1); Basophils Percent Auto 1.2 % (0.2-1.2); Eosinophils Absolute Auto 0.1 K/mm3 (0-0.3); Eosinophils Percent Auto 1.3 % (0-4.4); Hematocrit 36.3 % (37.0-47.0); Hemoglobin 11.1 g/dL (12.0-15.0); Immature Granulocyte Absolute 0.03 K/mm3 (0.00-0.031); Immature Granulocyte Percent A 0.3 % (0-0.5); Lymphocytes Absolute Auto 2.44 K/mm3 (0.9-3.2); Lymphocytes Percent Auto 26.8 % (18.3-44.2); Mean Corpuscular HGB Conc 30.6 g/dl (32-36); Mean Corpuscular Hemoglobin 26.3 pg (26-34); Mean Platelet Volume 10.8 fl (7.4-10.4); Monocytes Absolute Auto 0.7 K/mm3 (0.1-0.6); Monocytes Percent Auto 7.5 % (2.6-8.5); Neutrophils Absolute Auto 5.7 K/mm3 (1.3-6.7); Neutrophils Percent Auto 62.9 % (45.5-73.1); Platelet Count Result 282 k/mm3 (150-375); Red Blood Count 4.22 M/mm3 (4.2-5.4); Red Cell Distribution Width 15.9 % (11.5-14.5); White Blood Count 9.1 K/mm3 (4.5-10.0)
== END 2023-05-16 13:10 | disposition home or self-care (01) ==
LOC: ANHGOSHLAB 13:11
PROVIDERS: PCP Internal Medicine; Visit Provider Internal Medicine
DX: D64.9 Anemia, unspecified (principal)
CPT/HCPCS: 36415; 85025

== ENCOUNTER 2023-08-22 00:35 | Day surgery (SDC) | payer MEDICARE, SELFPAY ==
[2023-08-05 11:01] VITALS: BMI 39.2
[2023-08-22 07:49] VITALS: BP 168/80; PULSE 85; RESP 18; TEMP 36.2; O2SAT 97
[2023-08-22] MEDS: LACTATED RINGERS 1,000 ML 150 ML IV CONT (08:08)
[2023-08-22 08:09] LABS: Glucose Point of Care 138 mg/dl (65-105)
--- NOTE | 2023-08-22 08:24 | WPDANESEPPF ---
Anes - Initial Pre Proc Eval Procedure: Operation Date: 08/22/23 09:00 Proposed Procedures p Esophagogastroduodenoscopy & Colonoscopy - Arian Sparks MD Date/Time: 08/22/23 08:24 Surgeon: Arian Sparks MD Pre Op Diagnosis: Iron deficiency anemia unspecified Patient Data Age: 73 Gender: F Height: 1.7 m Weight: 112.9 kg Last Vital Signs Temp 97.2 F L 08/22/23 07:49 Pulse 85 08/22/23 07:49 Resp 18 08/22/23 07:49 BP 168/80 H 08/22/23 07:49 Pulse Ox 97 08/22/23 07:49 O2 Del Method Room Air 08/22/23 07:49 Allergies Allergy/AdvReac Type Severity Reaction Status Date / Time No Known Allergies Allergy Verified 08/22/23 07:46 Home Medications Medication Instructions Recorded Confirmed Type cholecalciferol (vitamin D3) 125 125 mcg PO DAILY 04/29/20 08/05/23 History mcg (5,000 unit) tablet loratadine 10 mg tablet (Claritin) 10 mg PO DAILY 04/29/20 08/05/23 History losartan 50 mg-hydrochlorothiazide 1 tablet PO DAILY 04/29/20 08/05/23 History 12.5 mg tablet metformin 500 mg tablet,extended 1,000 mg PO BID 04/29/20 08/05/23 History release 24 hr docusate sodium 100 mg capsule 100 mg PO Q12H PRN Constipation 05/02/20 08/05/23 Rx #30 caps cyanocobalamin (vitamin B-12) 1,000 mcg PO DAILY 06/27/23 08/05/23 History 1,000 mcg capsule gabapentin 300 mg capsule 300 mg PO TID 06/27/23 08/05/23 History atorvastatin 40 mg tablet 40 mg PO DAILY 08/05/23 08/05/23 History magnesium 500 mg tablet 500 mg PO HS 08/05/23 08/05/23 History semaglutide 0.25 mg or 0.5 mg (2 0.25 mg subcut WEEKLY 08/05/23 08/05/23 History mg/3 mL) subcutaneous pen injector (Ozempic) Laboratory Tests 08/22/23 08:05 POC Capillary Glucose 138 H mg/dl (65-105) Patient hx anesthesia problems: none Family hx anesthesia problems: none Results Review: All pre-operative results and documents have been reviewed as part of the pre-operative evaluation. [facility] Past Medical History Medical History (Updated 06/27/23 @ 14:10 by CHELSI Pierce) Asthma Essential hypertension History of shingles LEXIE (iron deficiency anemia) Obstructive sleep apnea on CPAP Type 2 diabetes mellitus Surgical History Surgical History History of appendectomy History of arthroscopy of both knees History of bilateral cataract extraction History of bilateral knee arthroplasty History of bladder suspension procedure History of hysterectomy History of sinus surgery History of tonsillectomy History of tubal ligation Family History Family History Father Lymphoma Mother Heart disease Breast cancer Social History Social History Social History: Surrogate decision maker: Mookie Pang, significant other. Code status: Full code. Smoking packs per day: 0.75 Smoking cigarettes per day: 15.0 Years smoked: 36 Smoking pack-years: 27.00 Smoking status: Former smoker Tobacco type: cigarettes Additional smoking assessment comments: 1 pack per day, quit about 25 years ago. Alcohol intake: current Substance use: never Substance use type: does not use Living arrangements: with family Additional living arrangements comments: Lives with her significant other in [place]. 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 Gender identity (if verbalized by the patient): Female Spiritual care concerns: No Anes - Eval Final PreProcedure Day of Procedure 08/22/23 08:24 Patient weight: morbidly obese Heart: regular rate and rhythm Lungs: clear to auscultation Airway: Mallampati scale class II Neurological: alert and oriented Last oral intake: >/= 8 hours ASA classification: III Emergent: no Anesthetic plan: proceed Anesthesia type and monitoring: general GIVS a
--- NOTE | 2023-08-22 08:50 | PM.HPGS ---
History of Present Illness History of Present Illness Consent: Risks, benefits, and alternatives have been discussed and questions answered. Patient agrees to proceed with procedure. Chief complaint: Iron deficiency anemia unspecified Narrative: Hallie Reina is a 73 year old female with orly, no overt gib, here for scopes Review of Systems Review of Systems: All systems reviewed & are unremarkable except as noted in HPI and below PMFSH Past Medical History Medical History (Updated 06/27/23 @ 14:10 by CHELSI Pierce) Asthma Essential hypertension History of shingles ORLY (iron deficiency anemia) Obstructive sleep apnea on CPAP Type 2 diabetes mellitus Surgical History Surgical History History of appendectomy History of arthroscopy of both knees History of bilateral cataract extraction History of bilateral knee arthroplasty History of bladder suspension procedure History of hysterectomy History of sinus surgery History of tonsillectomy History of tubal ligation Family History Family History Father Lymphoma Mother Heart disease Breast cancer Social History Social History Social History: Surrogate decision maker: Mookie Pang, significant other. Code status: Full code. Smoking packs per day: 0.75 Smoking cigarettes per day: 15.0 Years smoked: 36 Smoking pack-years: 27.00 Smoking status: Former smoker Tobacco type: cigarettes Additional smoking assessment comments: 1 pack per day, quit about 25 years ago. Alcohol intake: current Substance use: never Substance use type: does not use Living arrangements: with family Additional living arrangements comments: Lives with her significant other in [place]. 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 Gender identity (if verbalized by the patient): Female Spiritual care concerns: No Meds Home Medications and Allergies Home Medications Medication Instructions Recorded Confirmed Type cholecalciferol (vitamin D3) 125 125 mcg PO DAILY 04/29/20 08/05/23 History mcg (5,000 unit) tablet loratadine 10 mg tablet (Claritin) 10 mg PO DAILY 04/29/20 08/05/23 History losartan 50 mg-hydrochlorothiazide 1 tablet PO DAILY 04/29/20 08/05/23 History 12.5 mg tablet metformin 500 mg tablet,extended 1,000 mg PO BID 04/29/20 08/05/23 History release 24 hr docusate sodium 100 mg capsule 100 mg PO Q12H PRN Constipation 05/02/20 08/05/23 Rx #30 caps cyanocobalamin (vitamin B-12) 1,000 mcg PO DAILY 06/27/23 08/05/23 History 1,000 mcg capsule gabapentin 300 mg capsule 300 mg PO TID 06/27/23 08/05/23 History atorvastatin 40 mg tablet 40 mg PO DAILY 08/05/23 08/05/23 History magnesium 500 mg tablet 500 mg PO HS 08/05/23 08/05/23 History semaglutide 0.25 mg or 0.5 mg (2 0.25 mg subcut WEEKLY 08/05/23 08/05/23 History mg/3 mL) subcutaneous pen injector ([employer]) Allergies Allergy/AdvReac Type Severity Reaction Status Date / Time No Known Allergies Allergy Verified 08/22/23 07:46 Vital Signs Vital Signs - 24 hr 08/22/23 07:49 Temperature 97.2 F L Pulse Rate 85 Respiratory Rate 18 Blood Pressure 168/80 H Pulse Oximetry 97 Oxygen Delivery Room Air Exam Const: General: comfortable and no acute distress HENMT: Face/Nose/Sinus: Normal nares present Eyes: General: appearance normal, both eyes and all related structures Neck: Neck: no JVD Resp: Auscultation: clear to auscultation bilaterally Cardio: Rate: regular rate Rhythm: regular rhythm GI: Inspection: non-distended GI Palp: Yes Soft to palpation Skin: General skin exam: normal color Neuro: General: gait normal Speech: normal speech Extrem: General: normal to inspection Psych: Mental Status: mental status grossly normal Assessme
--- NOTE | 2023-08-22 09:04 | SUR.OPER ---
EGD ended at 858, colon began at 903
[2023-08-22 09:22] VITALS: BP 106/68; PULSE 69; RESP 22; O2SAT 100
[2023-08-22 09:32] VITALS: BP 119/72; PULSE 66; RESP 22; O2SAT 100
[2023-08-22 09:42] VITALS: BP 122/71; PULSE 63; RESP 19; O2SAT 100
== END 2023-08-22 10:12 | disposition home or self-care (01) ==
PROVIDERS: PCP Internal Medicine; Referring Provider Nurse Practitioner Family; Visit Provider Internal Medicine Gastroenterology
PROC: 0DJ08ZZ Inspection of Upper Intestinal Tract, Via Natural or Artificial Opening Endoscopic (ICD-10-PCS; CPT 43235; principal; 2023-08-22 09:00)
DX: Z12.11 Encounter for screening for malignant neoplasm of colon (principal); K62.1 Rectal polyp; K64.8 Other hemorrhoids; K29.50 Unspecified chronic gastritis without bleeding; K63.89 Other specified diseases of intestine; D50.9 Iron deficiency anemia, unspecified; K44.9 Diaphragmatic hernia without obstruction or gangrene; K31.A19 Gastric intestinal metaplasia without dysplasia, unspecified site; I10 Essential (primary) hypertension; J45.909 Unspecified asthma, uncomplicated; G47.33 Obstructive sleep apnea (adult) (pediatric); Z99.89 Dependence on other enabling machines and devices; E11.9 Type 2 diabetes mellitus without complications; E66.01 Morbid (severe) obesity due to excess calories; Z68.39 Body mass index [BMI] 39.0-39.9, adult; Z79.84 Long term (current) use of oral hypoglycemic drugs; Z79.85 Long-term (current) use of injectable non-insulin antidiabetic drugs; Z98.890 Other specified postprocedural states; Z98.51 Tubal ligation status; Z87.891 Personal history of nicotine dependence; Z80.3 Family history of malignant neoplasm of breast; Z82.49 Family history of ischemic heart disease and other diseases of the circulatory system; Z80.7 Family history of other malignant neoplasms of lymphoid, hematopoietic and related tissues
CPT/HCPCS: 43239; 45385; 82948; 88305; J2704; J7120

== ENCOUNTER 2023-10-03 09:13 | Outpatient (CLI) | payer MEDICARE, SELFPAY ==
--- NOTE | ~2023-10-03 | US_ITS ---
EXAMINATION: US art doppler w press ELISSA CASSIDY DATE: 10/03/2023 12:28 CDT INDICATION: Diabetes. Numbness in the right lower extremity. Decreased pedal pulses. TECHNIQUE: Segmental pressures and plethysmographic and Doppler waveforms of the brachial and lower e xtremity arteries were obtained. COMPARISON: None. FINDINGS: Right and left brachial artery pressures of 1:15 mm Hg and 1:15 mm Hg, respectively, are concordant ( normal difference <= 30 mmHg). The right high-thigh pressure index is 1.26 (normal > 1.2). The right ankle-brachial index (NIKKY) is 1 .1 (normal >= 0.9-1.0). The right great toe-brachial index (TBI) is 0.82 (normal >= 0.60). The right lower extremity segmental pressure gradients are normal (normal gradients <= 20-30 mmHg between adjac ent levels on the same leg or the same levels on the two legs). Arterial Doppler waveforms are biphas ic. The left high-thigh pressure index is 1.1. The left NIKKY is 1.1. The left TBI is 0.77. The left lower extremity segmental pressure gradients are normal. Arterial Doppler waveforms are biphasic. IMPRESSION: 1. Unremarkable lower extremity arterial Doppler. Normal ankle-brachial indices. Reviewed, dictated and finalized at location B. IMPRESSION: 1. Unremarkable lower extremity arterial Doppler. Normal ankle-brachial indices .
== END 2023-10-03 09:14 | disposition home or self-care (01) ==
PROVIDERS: PCP Internal Medicine; Visit Provider Internal Medicine
DX: R09.89 Other specified symptoms and signs involving the circulatory and respiratory systems (principal)
CPT/HCPCS: 93923

== ENCOUNTER 2023-10-29 13:12 | Outpatient (CLI) | payer MEDICARE, SELFPAY ==
--- NOTE | ~2023-10-29 | DEXA_ITS ---
Bone Density Report Name: JULIO FELDER Age: 73 Sex: Female Ethnicity: White Date of : 1950 Indication: postmenopausal; screening for osteoporosis; height loss; asthma or emphysema; hysterectomy; Referring Provider: CHET CAGE Study: Bone densitometry was performed. Exam Date: October 29, 2023 Accession number: [id number] Bone Density: Region BMD T-score Z-score Classification AP Spine(L1, L2, L3) 1.127 1.0 3.2 Normal Femoral Neck (Left) 0.657 -1.7 0.3 Osteopenia Total Hip (Left) 0.859 -0.7 1.0 Normal Femoral Neck (Right) 0.679 -1.5 0.4 Osteopenia Total Hip (Right) 0.839 -0.8 0.8 Normal Total Hip Mean 0.849 -0.8 0.9 Normal World Health Organization criteria for BMD impression classify patients as: Normal (T-score at or above -1.0), Osteopenia (T-score between -1.0 and -2.5), or Osteoporosis (T-score at or below -2.5). 10-year Fracture Risk(1): Major Osteoporotic Fracture 10% Hip Fracture 1.9% Reported Risk Factors: [place] (), Neck BMD=0.657, BMI=40.4 (1) FRAX(R) Version 3.08. Fracture probability calculated for an untreated patient. Fracture probability may be lower if the patient has received treatment. Clinical Information Provided by Patient: Has used the following medications: Vitamin D Has the following medical conditions: Asthma or Emphysema, Hysterectomy Patient maximum height was 67.5 Menopause Age: 50 Drinks caffeinated beverages Onset of menses at age 12 Number of children 2 Impression: The patient has low bone mass, based on the Left Femoral Neck T-score. The patient has an estimated ten-year risk of hip fracture of 1.9% and an estimated ten-year risk of major fracture of 10%, based on the WHO FRAX algorithm. Discussion: BONE DENSITY IS LOW AT ONE OR MORE SKELETAL SITES. This patient's lowest T-score is low at one or more skeletal sites. It meets the World Health Organization's (WHO) criteria for ?low bone mass? (T-score between -1.0 and -2.5). The patient's 10-year risk of fracture as calculated by FRAX is less than the threshold where pharmacological therapy is recommended by the National Osteoporosis Foundation (NOF). However, all treatment decisions require clinical judgment and consideration of individual patient factors, including patient preferences, comorbidities, previous drug use, risk factors not captured in the FRAX model (e.g., frailty, falls, vitamin D deficiency, increased bone turnover, interval significant decline in bone density) and possible under or overestimation of fracture risk by FRAX. The patient should follow a healthful lifestyle (good nutrition with adequate calcium and vitamin D, and appropriate weight-bearing exercise). Follow-Up: Consider repeating this study in 2 to 3 years to reassess this patient's status, or
--- NOTE | ~2023-10-29 | MM_ITS ---
EXAMINATION: MM screening [facility] BI w alli HISTORY: Screening TECHNIQUE: Craniocaudal and mediolateral oblique 3-D tomosynthesis images were obtained and synthetic 2-D images were generated. CAD analysis was submitted and interpreted. COMPARISON: Comparison to multiple prior studies sequentially, with oldest reviewed study dated 06/2018. BREAST PARENCHYMAL COMPOSITION: Not Dense. The breasts are almost entirely fatty. FINDINGS: There is no evidence of suspicious mass, calcification, or architectural distortion to sugg est malignancy in either breast. There has been no suspicious interval change. IMPRESSION: 1. No mammographic evidence of malignancy. 2. Recommend routine screening mammography in one year. BI-RADS Category 1: Negative Reviewed, dictated and finalized at location B.
== END 2023-10-29 13:13 | disposition home or self-care (01) ==
LOC: ANHIMG 13:24
PROVIDERS: PCP Internal Medicine; Visit Provider Internal Medicine
DX: Z12.31 Encounter for screening mammogram for malignant neoplasm of breast (principal); Z78.0 Asymptomatic menopausal state; M85.852 Other specified disorders of bone density and structure, left thigh; M85.851 Other specified disorders of bone density and structure, right thigh
CPT/HCPCS: 77063; 77067; 77080